=== PATIENT | female | born 1965 | race African-American/Black ===

== ENCOUNTER 2017-11-17 13:30 | Emergency (ER) | payer MEDICAID, OTHER ==
[~2017-11-17] VITALS: Ht 165.1 cm; Wt 79.4 kg
[~2017-11-17 13:30] MED LIST: HYDROCHLOROTHIA25 MG ORAL; LIPITOR20 MG ORAL
[2017-11-17 13:44] VITALS: BP 205/104
[2017-11-17] MEDS ORDERED: AMLODIPINE BESY10 MG ORAL (13:59)
[2017-11-17] MEDS ORDERED: BENAZEPRIL HCL20 MG ORAL (13:59)
--- NOTE | 2017-11-17 13:59 | Emergency Room Report ---
History of Present Illness General Chief Complaint: Medication Refill Present Illness HPI 52-year-old female patient presents ER requesting medication refill for her hypertension medication. Patient reports she has not taken her medication for a 'few days". Patient denies acute symptoms ER currently. Patient notes chest pain, shortness of breath, vision changes, abdominal pain. denies neck pain, calf Pain, cough. Patient reports she takes amlodipine 10 mg, and aspirin 20 mg. Patient reports she is seen by a outpatient clinic but they're closed today and was unable to get a refill from them. Patient reports drinking caffeine, patient reports stress at home, patient reports high fat and salt diet. Allergies: Coded Allergies: No Known Allergies (Unverified , 04/28/16) Patient History Past Medical History: see triage record Reviewed Nursing Documentation: PMH: Agreed; PSxH: Agreed Nursing Documentation-PMH Hx Hypertension: Yes Review of Systems All Other Systems: negative except mentioned in HPI Physical Exam Vital Signs Date Time Temp Pulse Resp B/P (MAP) Pulse Ox O2 Delivery O2 Flow Rate FiO2 11/17/17 13:35 98.1 76 20 205/104 99 Room Air 98.1 Sp02 EP Interpretation: reviewed, normal General Appearance: well appearing, no apparent distress, alert, GCS 15, non- toxic Head: normocephalic, atraumatic Eyes: bilateral eye normal inspection, bilateral eye PERRL ENT: hearing grossly normal, normal pharynx, no angioedema, normal voice, uvula midline, moist mucus membranes Neck: full range of motion Respiratory: lungs clear, normal breath sounds, no rhonchi, no respiratory distress, no accessory muscle use, no wheezing, speaking full sentences Cardiovascular #1: regular rate, rhythm, no edema Musculoskeletal: back normal, digits/nails normal, gait/station normal, normal range of motion, non-tender Neurologic: alert, oriented x3, responsive, motor strength/tone normal, sensory intact Psychiatric: mood/affect normal Skin: no rash Medical Decision Making PA Attestation Dr. Mejia is my supervising Physician whom patient management has been discussed with. Diagnostic Impression: Primary Impression: Encounter for medication refill Additional Impression: History of hypertension ER Course Pt. presents to the ED requesting prescription refill. Multiple differentials were considered. Vital signs: are WNL, pt. is afebrile. blood pressure elevated. Will provide medication ER and prescription ago home with. ORDERS: PE benign, lungs clear to auscultation. Patient denies acute complaints in ER currently. provided with single dose of hypertension medication ER. Will continue to monitor patient blood pressure. Patient resting comfortably in no acute distress, talking without difficulty, smiling and laughing. Informed patient ER cannot provide refills in the future; followup, management and prescription of long-term medications must be performed by primary care provider. instructed patient to follow with primary care and requests referral to cardiology as needed. Provided patient with instructions for managing hypertension. patient instructed on DASH diet. Avoid stress at home, avoid excessive salt intake, avoid fatty foods. patient reports understanding and agreement treatment plan. Blood pressure rechecked, blood pressure still elevated. Consult with Dr. Mejia , patient ok for discharge if no acute complaints. Patient has no acute complaints, patient ok for discharge home and outpatient treatment. Return to ER immediately for new or worsening symptoms including but not limited to chest pain, shortness of breath, headache, vision changes, abdominal pain. DISCHARGE: Rx provided for amlodipine Rx provided for benazepril At this time pt is stable for d/c to home. Patient is resting comfortably, in no acute distress, nontoxic appearing, talking without difficulty. Patient to take medications as instructed Will provide with patient care instructions and any necessary prescriptions. Care plan and follow-up instructions provided. Patient instructed to follow-up with primary care provider in 3 - 5 days. Patient questions asked and answered. Patient reports understanding and agreement to treatment plan. ER precautions given. Patient instructed to return to ER immediately for any new or worsening of symptoms including but not limited to increasing SOB, persistent fever. Last Vital Signs Date Time Temp Pulse Resp B/P (MAP) Pulse Ox O2 Delivery O2 Flow Rate FiO2 11/17/17 13:44 98.1 76 20 205/104 99 Room Air 98.1 Disposition: HOME, SELF-CARE Condition: Stable Scripts Benazepril Hcl* (BENAZEPRIL HCL*) 20 Mg Tablet 20 MG ORAL EVERY 12 HOURS, #24 TAB Prov: Davian Hawkins 11/17/17 Amlodipine Besylate* (AMLODIPINE BESYLATE*) 10 Mg Tablet 10 MG ORAL EVERY 12 HOURS, #24 TAB Prov: Davian [email or web address] 11/17/17 Patient Instructions: DASH Eating Plan, Hypertension, [id number], Managing Your High Blood Pressure, Medicine Refill at the Emergency Department Additional Instructions: Followup with primary care provider in 3 -5 days. Take medications as directed. Patient questions asked and answered. ER precautions given, patient instructed to return to ER immediately for any new or worsening of symptoms. Davian Hawkins Nov 17, 2017 13:59
[2017-11-17 15:10] VITALS: BP 200/100
== END 2017-11-17 15:12 | disposition home or self-care (01) ==
LOC: EMR 13:55
DX: Z76.0 Encounter for issue of repeat prescription (principal); I10 Essential (primary) hypertension
CPT/HCPCS: 99284